=== PATIENT | male | born 2000 | race Caucasian/White ===

== ENCOUNTER 2022-05-23 15:51 | Emergency (ER) | payer SELFPAY ==
[2022-05-23] MEDS ORDERED: Octyl 2-Cyanoacrylate 1 g/1 mL 1 APPLIC PEN TOP ONE (16:44)
== END 2022-05-23 17:34 | disposition home or self-care (01) ==
LOC: MW.ED 15:51
DX: S61.210A Laceration without foreign body of right index finger without damage to nail, initial encounter (principal); W26.0XXA Contact with knife, initial encounter
CPT/HCPCS: 12001; 73140-26-F6; 73140-F6; 99283